=== PATIENT | female | born 1955 | race Caucasian/White ===

== ENCOUNTER 2022-09-09 10:04 | Emergency (ER) | payer MEDICARE, MEDICAID ==
[~2022-09-09] VITALS: Ht 154.9 cm; Wt 33.4 kg
[~2022-09-09 10:04] MED LIST: LISI10TA27 PO
[2022-09-09 10:11] VITALS: TEMP 97.8
--- NOTE | 2022-09-09 10:16 | NUR ---
Patient noted with severe hypertension.
[2022-09-09] MEDS ORDERED: AMLO5TAB4 PO (10:57)
[2022-09-09 11:26] VITALS: BP 231/129; PULSE 103; RESP 20; O2SAT 98
== END 2022-09-09 11:31 | disposition home or self-care (01) ==
LOC: ER 10:04
DX: I10 Essential (primary) hypertension (principal); H92.02 Otalgia, left ear
CPT/HCPCS: 99283